=== PATIENT | female | born 1935 | race Caucasian/White ===

== ENCOUNTER 2017-10-20 06:51 | Inpatient (IN) | payer MEDICARE, OTHER ==
[2017-10-20] MEDS ORDERED: CEFAZOLIN 2 GM/50 ML (PMX) 50 ML IVPB (07:00)
[2017-10-20] MEDS ORDERED: TRANEXAMIC ACID 1,000 MG in DEXTROSE 5% 100 ML IVPB (07:00)
[2017-10-20] MEDS: traMADol 50 MG TAB PO (07:18)
[2017-10-20] MEDS: DEXAMETHASONE 1 MG TAB PO (07:18)
[2017-10-20 07:48] LABS: INR 1.19; PARTIAL THROMBOPLASTIN TIME 28.9 Sec (25.0-35.0); PROTIME 15.3 Sec (11.9-14.9); PT RATIO 1.2
[2017-10-20] MEDS ORDERED: ROPIVACAINE 0.5 % 30 ML VIAL (08:16)
[2017-10-20] MEDS ORDERED: ROCURONIUM 50 MG INJ (08:16)
[2017-10-20] MEDS ORDERED: PROPOFOL 20 ML (08:16)
[2017-10-20] MEDS ORDERED: FENTAnyl 50 MCG/ML VIAL (08:16)
[2017-10-20] MEDS ORDERED: BUPIVACAINE 0.5% (SDV) 30 ML INJ (08:57)
[2017-10-20] MEDS ORDERED: SUGAMMADEX SODIUM 200 MG/2 ML VIAL IV (09:10)
[2017-10-20] MEDS ORDERED: ACETAMINOPHEN 1000MG/100ML IV 100 ML (09:10)
[2017-10-20] MEDS ORDERED: METOCLOPRAMIDE 10 MG INJ (09:10)
[2017-10-20] MEDS ORDERED: DEXAMETHASONE 4 MG/ML 1 ML INJ (09:10)
[2017-10-20] MEDS ORDERED: ONDANSETRON 4 MG INJ (09:10)
[2017-10-20] MEDS ORDERED: FENTAnyl 50 MCG/ML VIAL IV ×3 (09:30)
[2017-10-20] MEDS ORDERED: ONDANSETRON 4 MG INJ IV ×2 (09:30→10:30)
[2017-10-20] MEDS ORDERED: DIPHENHYDRAMINE 50 MG INJ IV ×2 (09:30→10:30)
[2017-10-20] MEDS ORDERED: hydrALAzine 20 MG INJ IV (09:30)
[2017-10-20] MEDS ORDERED: METOCLOPRAMIDE 10 MG INJ IV (09:30)
[2017-10-20] MEDS ORDERED: MEPERIDINE 25 MG INJ IV (09:30)
[2017-10-20] MEDS ORDERED: HYDROmorphONE (0.2 MG/ML) 10ML SYG IV ×3 (09:30)
[2017-10-20] MEDS ORDERED: LABETALOL HCL 20MG INJ IV (09:30)
[2017-10-20] MEDS ORDERED: OXYCODONE/ACETAMINOPHEN (5/325) TAB PO ×2 (09:30→10:30)
[2017-10-20] MEDS ORDERED: ALBUMIN HUMAN 5% 250 ML IV (09:30)
[2017-10-20] MEDS ORDERED: EPHEDrine SULFATE 50 MG/5 ML SYG IV (09:30)
[2017-10-20] MEDS ORDERED: PHENYLephrine 10 MG INJ (09:33)
[2017-10-20] MEDS ORDERED: PHENYLephrine (100 MCG/ML) 5ML SYG (09:33)
[2017-10-20] MEDS: CA CHLORIDE 10% 10 ML SYRINGE (09:35)
[2017-10-20] MEDS: THROMBIN 5000 UNIT VIAL (09:35)
[2017-10-20] MEDS: SOD CHLORIDE 0.9% 100 ML, TRANEXAMIC ACID 3,000 MG IRR (09:35)
[2017-10-20] MEDS: POLYMYXIN/BACITRACIN 1L IRRIG (09:36)
[2017-10-20] MEDS: TOBRAMYCIN 1.2 GM POWDER (09:37)
[2017-10-20] MEDS: VANCOMYCIN 1 GM INJ (09:37)
[2017-10-20] MEDS: BUPIVACAINE 0.5% (SDV) 30 ML, morphine SULFATE (PF) 8 MG, EPINEPHrine 0.3 MG, CLONIDINE... IRR (09:38)
[2017-10-20] MEDS ORDERED: morphine 2 MG INJ IV ×2 (10:30)
[2017-10-20] MEDS ORDERED: MAGNESIUM HYDROXIDE 30ML CUP PO (10:30)
[2017-10-20] MEDS ORDERED: ACETAMINOPHEN 500 MG TAB PO (10:30)
[2017-10-20] MEDS: CEFAZOLIN 1 GM/50 ML (PMX) 50 ML IVPB ×2 (10:30→17:56)
[2017-10-20] MEDS: TRANEXAMIC ACID 1,000 MG in DEXTROSE 5% 100 ML IV (11:54)
[2017-10-20] MEDS: DEXAMETHASONE 2 MG TAB PO ×3 (14:07→23:24)
[2017-10-20] MEDS: GABAPENTIN 300 MG CAP PO (20:25)
[2017-10-20] MEDS: SENNA/DOCUSATE NA (8.6MG/50MG) TAB PO (20:25)
[2017-10-20] MEDS: ROPINIROLE 1 MG TAB PO (21:26)
[2017-10-20] MEDS: ZOLPIDEM 5 MG TAB PO (23:24)
[2017-10-21] MEDS: CEFAZOLIN 1 GM/50 ML (PMX) 50 ML IVPB (02:43)
[2017-10-21] MEDS: DEXAMETHASONE 2 MG TAB PO (06:43)
[2017-10-21] MEDS: SENNA/DOCUSATE NA (8.6MG/50MG) TAB PO (08:44)
[2017-10-21] MEDS: DULOXETINE 30 MG CAP DR PO (08:44)
[2017-10-21] MEDS: PANTOPRAZOLE (EC) 40 MG TAB PO (08:44)
[2017-10-21] MEDS: ROPINIROLE 1 MG TAB PO (08:44)
[2017-10-21] MEDS ORDERED: ROPINIROLE 1 MG TAB PO (09:00)
[2017-10-21] MEDS: OXYCODONE/ACETAMINOPHEN (5/325) TAB PO (11:16)
[2017-10-21] MEDS ORDERED: WARFARIN 5 MG TAB PO (17:00)
== END 2017-10-21 14:10 | disposition home or self-care (01) | DRG 483 ==
LOC: REC 06:51 → MS1 12:38
PROC: 0RRJ0J6 Replacement of Right Shoulder Joint with Synthetic Substitute, Humeral Surface, Open Approach (ICD-10-PCS; principal; 2017-10-20 08:30)
PROC: 0PSF04Z Reposition Right Humeral Shaft with Internal Fixation Device, Open Approach (ICD-10-PCS; 2017-10-20 08:30)
PROC: 0RPJ0JZ Removal of Synthetic Substitute from Right Shoulder Joint, Open Approach (ICD-10-PCS; 2017-10-20 08:30)
DX: T84.038A Mechanical loosening of other internal prosthetic joint, initial encounter (principal); S42.391A Other fracture of shaft of right humerus, initial encounter for closed fracture
CPT/HCPCS: 73030-RT; 85610; 85730; 86999; 87070; 87075; 88300